=== PATIENT | female | born 1990 | race Caucasian/White ===

== ENCOUNTER 2016-10-09 17:12 | Observation (INO) | payer OTHER ==
[~2016-10-09] VITALS: Ht 170.2 cm; Wt 54.4 kg
[~2016-10-09 17:12] MED LIST: DOXY100V IV; METR500T PO
--- NOTE | 2016-10-09 17:26 | ED.REPORT ---
HPI-General Illness Date of Service Oct 09, 2016 ED Provider: Hemal Barnett MD Pt is a 25 y.o. female with a hx of endocarditis and IV drug use who presents to the ED c/o chest pain onset 3 months ago. Pt reports associated headache, weakness, SOB, fever, chills, malaise, and fatigue. She denies rash. Pt states that she was seen at [facility] ED last night but eloped. She states that they called her today and told her that her blood was "positive for strep". She denies recent IV drug use. She reports that she was hospitalized from December to February of 2016 for endocarditis at [facility]. Nursing Notes Stated Complaint: CHEST PAIN, BLOOD INFECTION/SENT FROM [facility] Nursing Notes Reviewed: Yes Allergies: Coded Allergies: No Known Allergies (Verified Allergy, Unknown, 10/09/16) Scheduled Doxycycline Hyclate (Doxy 100) 100 Mg Vial 100 MG IV BID Metronidazole (Flagyl) 500 Mg Tablet 500 MG PO Q8H General Time Seen by MD: 17:25 Chief Complaint Chest pain Hx Obtained From: Patient Arrived By: Walk-in Sudden in Onset?: No Onset Occurred: More than a week ago... 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 Physical Exam Vital Signs Vital Signs Date Time Temp Pulse Resp B/P Pulse Ox O2 Delivery O2 Flow Rate FiO2 10/09/16 19:00 97 19 105/52 99 Room Air 10/09/16 17:32 36.7 76 16 99/50 100 Room Air Initial VS: Reviewed Head / Eyes: Atraumatic, Normocephalic Extremities: Vascular intact, Neuro intact Neurologic: Alert, Oriented, Nonfocal Psychiatric: Mood/affect normal, Behavior normal, Normal thought content General/Constitutional: Awake, Alert, No acute distress, Well appearing, Well developed, Well hydrated, Well nourished, Not toxic appearing Respiratory / Chest: Atraumatic, Breath sounds NL, Breath sounds = bilat, No respiratory distress, No rales, No rhonchi, No wheezing, No retractions, No stridor Heart Sounds / Murmur: Positive: Systolic murmur present.. (II/) Abdomen: Atraumatic, Soft, Non-tender, No guarding, No rebound, No distention Skin: Atraumatic, No rash, Warm, Dry, Intact Rash / Lesion Pattern: Positive: Track [place] (Well healed, forearms bilaterally ) No splinter hemorrhage Interpretation & Diagnostics Lab Results Interpretation Result Diagram: 10/09/16 1740 10/09/16 1740 Test 10/09/16 17:34 10/09/16 17:40 10/09/16 18:34 Urine Color Yellow (YELLOW) Urine Appearance Hazy (CLEAR,HAZY) Urine pH 7.5 (5.0-8.0) Urine Specific [place] 1.020 (1.003-1.035) Urine Protein Negativemg/dL (NEG,TRACE) Urine Glucose (UA) Negativemg/dL (NEGATIVE) Urine Ketones Negativemg/dL (NEGATIVE) Urine Occult Blood Negative (NEGATIVE) Urine Nitrite Negative (NEGATIVE) Urine Bilirubin Negative (NEGATIVE) Urine Urobilinogen Normalmg/dL (NORMAL) Urine Leukocyte Esterase Negative (NEGATIVE) Urine RBC 0-2/hpf (0-2) Urine WBC 0-5/hpf (0-5) Urine Epithelial Cells Many/hpf (NONE-MOD) Urine Crystals None seen (NONE SEEN) Urine Bacteria Few/hpf (NONE-FEW) Urine Hyaline Casts None/lpf (NONE) Urine Granular Casts None seen (NONE SEEN) Urine Waxy Casts None seen (NONE SEEN) Urine Red Blood Cell Casts None seen (NONE SEEN) Urine White Blood Cell Casts None seen (NONE SEEN) Urine Mucus Present (None Seen) Urine Trichomonas None seen (NONE SEEN) Urine Yeast None (NONE SEEN) Urinalysis Comment None Urine Culture Reflexed Not indicated Hold Urine Received (Received) White Blood Count 5.6th/mm3 (3.8-10.1) Red Blood Count 3.54mil/mm3 (3.90-5.20) Hemoglobin 9.9g/dL (12.0-15.6) Hematocrit 30.1% (35.0-46.0) Mean Corpuscular Volume 85.0fL (81-100) Mean Corpuscular Hemoglobin 28.0pg (27.0-35.0) Mean Corpuscular Hemoglobin Concent 32.9% (32.0-37.0) Red Cell Distribution Width 13.2% (12.3-15.4) Platelet Count 247bil/L (150-400) Neutrophils (%) (Auto) 61.4% (40-74) Lymphocytes (%) (Auto) 29.7% (14-46) Monocytes (%) (Auto) 7.2% (4-12) Eosinophils (%) (Auto) 0.9% (0-5) Basophils (%) (Auto) 0.4% (0-3) Sodium Level 137mEq/L (134-144) Potassium Level 4.3mEq/L (3.5-5.2) Chloride Level 102mEq/L (97-108) Carbon Dioxide Level 20mmol/L (18-29) Blood Urea Nitrogen 11mg/dL (6-20) Creatinine 0.29mg/dL (0.57-1.00) Estimat Glomerular Filtration Rate 401mL/min (>59) Glucose Level 90mg/dL (60-99) Lactic Acid Level 1.1mmol/L (0.4-2.0) Calcium Level 9.0mg/dL (8.5-10.1) Magnesium Level 2.2mg/dL (1.6-2.6) Total Bilirubin 0.2mg/dL (0.0-1.2) Aspartate Amino Transf (AST/SGOT) 26U/L (0-50) Alanine Aminotransferase (ALT/SGPT) 18U/L (0-32) Alkaline Phosphatase 106U/L (25-150) Troponin T < 0.010ug/L (0.0-0.011) Total Protein 7.4g/dL (6.4-8.4) Albumin 3.2g/dL (3.4-5.0) Hold Barrow Top Tube Received (Received) Point of Care Testing: Preg test neg - urine, Lactate normal General Lab Results Interp 1: CMP normal except, CBC normal, Troponin # 1 normal General Lab Results Interp 2: Urinalysis NL ECG Interpretation ECG Interpretation: No acute ST segment changes Low-voltage throughout No prior ECG for comparison Time: 18:03 Interpreted by: ED physician Normal ECG Interpretation: Normal rate (74), Normal sinus rhythm, Normal axis, Normal intervals Drug Screen / Level Interp Urine positive opiate, Urine pos amphetamines X-Ray Chest Interpretation Chest Xray Interpretation: IMPRESSION: No radiographic explanation for chest pain. Dictated by: Enoch Zuleta M.D. on 10/09/2016 at 17:56 Approved by: Enoch Zuleta M.D. on 10/09/2016 at 17:56 Re-Eval/Medical Decision Med Decision/Clinical Course Patient is a 25-year-old female with a history of IV drug abuse and previous admission to [facility] from December to February of last year for bacterial endocarditis who presents to the emergency department with several weeks of vague symptoms including fever, malaise, fatigue, shortness of breath and chest pain. She reports that these symptoms are identical to her previous presentation of endocarditis. She initially denies to me that she has been using IV drugs though when her mother is out of the room she admits that she has been using IV drugs as recently as today. Of note she was seen last night at [facility] where blood cultures were obtained. She was called today and told that her blood cultures are "positive". At the time of evaluation records from [facility] were not immediately available. Upon arrival she is afebrile with stable vital signs though borderline hypotensive. Examination as above was revealing for a systolic murmur. 3 sets of blood cultures were obtained from separate sites 20 minutes apart. She was started on IV vancomycin. Laboratory studies were notable as below: CBC unremarkable, hematocrit 30 Lactate normal Troponin negative Urinalysis unremarkable Positive for meth,opiates, and oxycodone After discussion with the admitting hospitalist will do to obtain a CT scan of the chest to evaluate for any evidence of septic pulmonary emboli. There is no evidence thereof on CT imaging. She remained nontoxic in appearance and IV antibiotics and fluids were initiated. She was admitted to the hospitalist service with plan for echocardiogram and further evaluation for infectious endocarditis. She was transferred in stable condition. Source of Hx: Old records Time of Eval: 19:08 Re-Evaluation/Progress Note: Physical exam performed. Discussed need for admit, pt understands and agrees with plan. Consultation : Referral / Consult Name: Caro Olivo DO Call Returned at: 19:20 Airplane Navigator: Will see patient, Agrees with eval, Agrees with plan, Accepts admit Note: Discussed pt condition. Accepts admit. Counseled Regarding: Diagnosis Discharge & Departure Primary Impression: Endocarditis Endocarditis type: unspecified Chronicity: unspecified Qualified Code: I38 - Endocarditis, valve unspecified Additional Impressions: Fever Fever type: unspecified Qualified Code: R50.9 - Fever, unspecified Malaise Shortness of breath IV drug abuse Bacteremia History of endocarditis Disposition: ADMITTED TO HOSPITAL Discharge Condition All VS Reviewed: Yes Referrals: Asuncion Sanders (PCP) Adia Attestation Portions of this note were transcribed by Batsheva Qureshi. I, Dr. Barnett personally performed the history, physical exam and medical decision-making; I reviewed and confirmed the accuracy of the information in the transcribed note. Signed by: Adia Patrick, 10/09/16 and 192. copies to: Asuncion Sanders Beck O MD Oct 09, 2016 17:26 BATSHEVA QURESHI Oct 09, 2016 18:44
[2016-10-09 17:32] VITALS: BP 99/50; PULSE 76; RESP 16; O2SAT 100
--- NOTE | 2016-10-09 17:58 | DRSVH ---
PROCEDURE: X-RAY CHEST ONE VIEW, PORTABLE ([id number]) INDICATIONS: 25-year-old female with chest pain and possible endocarditis. TECHNIQUE: One view of the chest was acquired. COMPARISON: [facility], CR, XR CHEST 1V PORTABLE, 10/08/2016, 4:41 AM. [facility], CR, CHEST 1VW (PORTABLE), 03/14/2011, 6:47. [facility], RG, CHEST 2VW, 04/19/2005 , 9:36. FINDINGS: Surgical changes and devices: None. Lungs and pleura: No pleural effusions or pneumothorax. Lungs are clear. Mediastinum: Mediastinal contours appear normal. Heart size is normal. Bones and chest wall: No suspicious bony lesions. Overlying soft tissues appear unremarkable. IMPRESSION: No radiographic explanation for chest pain. Dictated by: Enoch Zuleta M.D. on 10/09/2016 at 17:56 Approved by: Enoch Zuleta M.D. on 10/09/2016 at 17:56
[2016-10-09 18:09] LABS: BASOPHILS % (AUTO) 0.4 % (0-3); EOSINOPHILS % (AUTO) 0.9 % (0-5); MONOCYTES % (AUTO) 7.2 % (4-12); NEUTROPHILS % (AUTO) 61.4 % (40-74); Platelet Count 247 bil/L (150-400)
[2016-10-09 18:15] LABS: APPEARANCE,URINE HAZY (CLEAR,HAZY); COLOR,URINE YELLOW (YELLOW); OCCULT BLOOD,URINE NEGATIVE (NEGATIVE); PH,URINE 7.5 (5.0-8.0); UROBILINOGEN,URINE NORMAL (NORMAL)
[2016-10-09 18:38] LABS: Magnesium 2.2 mg/dL (1.6-2.6)
[2016-10-09 18:49] LABS: TROPONIN T < 0.010 ug/L (0.0-0.011)
[2016-10-09 19:00] VITALS: BP 105/52; PULSE 97; RESP 19; O2SAT 99
[2016-10-09] MEDS ORDERED: Ondansetron 2 mg/mL 2 mL Inj IVPUSH PRN (19:15)
[2016-10-09] MEDS ORDERED: Alum-Mag Hydrox-Simeth 30 mL Suspension PO PRN (19:15)
[2016-10-09] MEDS ORDERED: Vancomycin Dose per Pharmacist XX ONE (19:15)
[2016-10-09] MEDS ORDERED: Vancomycin Inj 1,250 MG in 0.9% Sodium Chloride 250 ML IV ONE (19:25)
--- NOTE | 2016-10-09 20:15 | DRSVH ---
PROCEDURE: CT CHEST WITH CONTRAST ([id number]) INDICATIONS: 25-year-old female with history of endocarditis. Assess for septic emboli. TECHNIQUE: After the administration of intravenous contrast, 5 mm thick sections acquired from the pulmonary api clinton to the posterior costophrenic angles. 7 mm thick coronal and sagittal MIP reformats were acquire d. For radiation dose reduction, the following was used: automated exposure control, adjustment of mA and/or kV according to patient size. COMPARISON: [facility], CR, XR CHEST 1VW (PORTABLE), 10/09/2016, 17:31. FINDINGS: Image quality: Excellent. Lungs and pleura: No acute air space opacities. On axial image 34, 6 mm posterior right lower lobe nodule is present. On axial image 24, 1.2 cm posterior left upper lobe nodular lesion is present. T here is scattered right lung base linear scarring. No pleural effusions or pneumothorax. Central an d peripheral airways are patent and normal in caliber. Mediastinum: Heart size is normal. No pericardial effusion. No mediastinal or hilar adenopathy by size criteria. Thoracic aorta and central pulmonary arteries are normal in size. Esophagus is joseline l in caliber. No hiatal hernia. Bones and chest wall: Bilateral breast implants are present. No suspicious bony lesions. No verteb ral body compression fractures. No axillary or supraclavicular adenopathy by size criteria. Thyroid gland is incompletely visualized . Abdomen: Visualized upper abdominal solid organs appear normal. Upper abdominal bowel loops are nor mal in caliber. IMPRESSION: Several indeterminate bilateral pulmonary nodular lesions measure 6-12 mm in size, without internal c avitation currently to specifically suggest septic emboli. If outside institution chest CTs are unab le to be obtained for direct comparison, 2017 Fleischner Society criteria recommend 3-6 month follow- up with non contrast chest CT. Dictated by: Enoch Zuleta M.D. on 10/09/2016 at 20:07 Approved by: Enoch Zuleta M.D. on 10/09/2016 at 20:14
[2016-10-09 20:53] VITALS: BP 110/57; PULSE 83; RESP 18; O2SAT 98
[2016-10-09 21:04] VITALS: BP 108/68; PULSE 88; RESP 16; O2SAT 100
[2016-10-09 21:06] VITALS: PULSE 87
--- NOTE | 2016-10-09 21:32 | NUR ---
Admission Patient admitted to [facility] 2001 at 2100. Vancomycin infusing. A&Ox3, HAMMOND; denies pain at this time. Admits heroin and meth use and states smokes 5-10 cigarettes/day, but states she "never finishes a whole cigarette" and during her last hospitalization she never needed a nicotine patch. Patient oriented to room, call light, and policies. Tele: sinus rhythm in the 80s. SpO2 100% on room air. Continue to monitor.
--- NOTE | 2016-10-09 21:57 | PCM.HPMED ---
Subjective Date of Service Oct 09, 2016 Primary Provider: Admitting Physician: Primary Care Physician: Asuncion Sanders Attending Physician: Admit Status: From the Emergency Department Chief Complaint: Endocarditis Bacteremia History of Present Illness: 25-year-old woman with history of endocarditis and IV drug abuse presented to the emergency department complaining of chest pain onset 3 months ago, she was previously seen at [place] emergency department last night but eloped, she had blood cultures taken at the time which she was contacted today as being positive for strep. She was previously treated at [facility] in February 2016 for endocarditis. She admits to using IV heroin before coming to the emergency department today. She endorses chest pain, headache, weakness, shortness of breath, fever, chills , malaise and fatigue, constipation, no pain in her fingertips or toes. No Nausea, vomiting, diarrhea, dysuria, changes in vision, joint pain: In the emergency department, her urine was positive for heroin, methamphetamines , and oxycodone, she is not . Blood cultures 2 were taken in the ER before starting antibiotics, results pending. White blood cells were 5.6, hemoglobin 9.9, platelets 274, normal differential. Lactic acid 1.1, negative troponin, CMP otherwise unremarkable. One view chest x-ray performed 10/09/16 at 1730 4 PM IMPRESSION: No radiographic explanation for chest pain. Dictated by: Enoch Zuleta M.D. on 10/09/2016 at 17:56 EKG performed in the emergency department showed a heart rate of 74, sinus rhythm, normal axis, TN interval of 138, QTC of 445, "nonspecific intraventricular conduction delay" Review of Systems: Preventive of review of systems negative unless specified in history of present illness Allergies Coded Allergies: No Known Allergies (Verified Allergy, Unknown, 10/09/16) PMH Endocarditis Polysubstance abuse History of Elopement Surgical History L eye surgery when child Family History Father- HTN Mother - Alive and well. "Family history of alcoholism and diabetes." Social History Occupation: Unemployed Hx Alcohol Use: No Hx Substance Use: Yes (heroine, meth, last use today) Hx Tobacco Use: Yes Smoking Status: Current Every Day Smoker (5-10 cig/d for 8yrs) Years of Smokin Living Arrangement: Other (with significant other) Additional Information Spent 41 hospitalized for Endocarditis, staph infections, septic emboli. Exam Vital Signs Vital Sign - Last Date Time Temp Pulse Resp B/P Pulse Ox O2 Delivery O2 Flow Rate FiO2 10/09/16 19:00 97 19 105/52 99 Room Air 10/09/16 17:32 36.7 Exam General: Laying in bed, no apparent distress. HEENT: Normocephalic, atraumatic, EOMI grossly, Pupils 1.5mm fixed. Hyperpigmented lesion to L sclera. Mucous membranes moist, no lesions to mucosa. Cardiovascular: Regular rate and rhythm, 3/6 harsh systolic murmur at 4th L intercostal space. peripheral pulses 2/4 equal bilaterally Pulmonary: Clear to auscultation bilaterally, no W/R/R. Abdominal: Soft to palpation, bowel sounds present 4, no hepatosplenomegaly. Negative rebound. Extremities: No edema appreciated. No tenderness, asymmetry. Positive for multiple lesion pin-prick lesions along peripheral veins. No abscesses or rashes identified. No [place] lesions, No splinter infarcts. No chords. Neuro: Neurologically grossly intact, strength is equal bilaterally upper and lower extremities. MSK: able to move extremities on their own volition, strength 5 out of 5 equal bilaterally to upper and lower extremities. Lab and Diagnostics Labs CRP 10.7 on 10/08/16 Laboratory Tests 72 Hours Test 10/09/16 17:34 10/09/16 17:40 10/09/16 18:34 Urine Color Yellow (YELLOW) Urine Appearance Hazy (CLEAR,HAZY) Urine pH 7.5 (5.0-8.0) Urine Specific [place] 1.020 (1.003-1.035) Urine Protein Negativemg/dL (NEG,TRACE) Urine Glucose (UA) Negativemg/dL (NEGATIVE) Urine Ketones Negativemg/dL (NEGATIVE) Urine Occult Blood Negative (NEGATIVE) Urine Nitrite Negative (NEGATIVE) Urine Bilirubin Negative (NEGATIVE) Urine Urobilinogen Normalmg/dL (NORMAL) Urine Leukocyte Esterase Negative (NEGATIVE) Urine RBC 0-2/hpf (0-2) Urine WBC 0-5/hpf (0-5) Urine Epithelial Cells Many/hpf (NONE-MOD) Urine Crystals None seen (NONE SEEN) Urine Bacteria Few/hpf (NONE-FEW) Urine Hyaline Casts None/lpf (NONE) Urine Granular Casts None seen (NONE SEEN) Urine Waxy Casts None seen (NONE SEEN) Urine Red Blood Cell Casts None seen (NONE SEEN) Urine White Blood Cell Casts None seen (NONE SEEN) Urine Mucus Present (None Seen) Urine Trichomonas None seen (NONE SEEN) Urine Yeast None (NONE SEEN) Urinalysis Comment None Urine Culture Reflexed Not indicated Hold Urine Received (Received) White Blood Count 5.6th/mm3 (3.8-10.1) Red Blood Count 3.54mil/mm3 (3.90-5.20) Hemoglobin 9.9g/dL (12.0-15.6) Hematocrit 30.1% (35.0-46.0) Mean Corpuscular Volume 85.0fL (81-100) Mean Corpuscular Hemoglobin 28.0pg (27.0-35.0) Mean Corpuscular Hemoglobin Concent 32.9% (32.0-37.0) Red Cell Distribution Width 13.2% (12.3-15.4) Platelet Count 247bil/L (150-400) Neutrophils (%) (Auto) 61.4% (40-74) Lymphocytes (%) (Auto) 29.7% (14-46) Monocytes (%) (Auto) 7.2% (4-12) Eosinophils (%) (Auto) 0.9% (0-5) Basophils (%) (Auto) 0.4% (0-3) Sodium Level 137mEq/L (134-144) Potassium Level 4.3mEq/L (3.5-5.2) Chloride Level 102mEq/L (97-108) Carbon Dioxide Level 20mmol/L (18-29) Blood Urea Nitrogen 11mg/dL (6-20) Creatinine 0.29mg/dL (0.57-1.00) Estimat Glomerular Filtration Rate 401mL/min (>59) Glucose Level 90mg/dL (60-99) Lactic Acid Level 1.1mmol/L (0.4-2.0) Calcium Level 9.0mg/dL (8.5-10.1) Magnesium Level 2.2mg/dL (1.6-2.6) Total Bilirubin 0.2mg/dL (0.0-1.2) Aspartate Amino Transf (AST/SGOT) 26U/L (0-50) Alanine Aminotransferase (ALT/SGPT) 18U/L (0-32) Alkaline Phosphatase 106U/L (25-150) Troponin T < 0.010ug/L (0.0-0.011) Total Protein 7.4g/dL (6.4-8.4) Albumin 3.2g/dL (3.4-5.0) Hold Barrow Top Tube Received (Received) Result Diagram: 10/09/16 1740 10/09/16 1740 Microbiology BC X2 pending. Results from [facility], requested to be faxed over. X-Rays, CTs and MRIs Chest CT performed 10/09/2016 IMPRESSION: Several indeterminate bilateral pulmonary nodular lesions measure 6-12 mm in size, without internal cavitation currently to specifically suggest septic emboli. If outside institution chest CTs are unable to be obtained for direct comparison, 2017 Fleischner Society criteria recommend 3-6 month follow-up with non contrast chest CT. Dictated by: Enoch Zuleta M.D. on 10/09/2016 at 20:07 12-lead ECG See history of present illness Assessment & Plan 25-year-old with polysubstance abuse history of endocarditis, septic emboli, presents with positive blood cultures for gram-positive strep and multiple complaints. #1 acute bacteremia, present on admission, evaluation ongoing - Verbal positive result for gram-positive strep growth on blood cultures from [facility], awaiting results to be faxed over. (now in chart) - History of endocarditis secondary to IV drug use, continues to use, 3/6 tricuspid murmur. - Echocardiogram to be performed in a.m. - Vancomycin IV q24hrs started empirically. Pharmact to dose. Awaiting susceptibilities. - Consult infectious disease - Monitor vital signs closely for signs of sepsis - Hold off on starting PICC line until evaluated by ID. Repeat BCx pending. - Procalcitonin Now and Trend. #2 acute bilateral pulmonary nodules, present on admission, evaluation ongoing. - Possibly due to septic emboli, unable to determine if new, old, or change from previous - [facility] or reguarding previous hospital course for endocarditis with septic emboli. - ID consult as above. - likely source tricuspid vegetation. - Awaiting AM ECHO. #3 chronic endocarditis, present on admission, evaluation ongoing - History of endocarditis, continued murmur at fourth left intercostal space, 3 out of 6, harsh. - Echo as above, empiric antibiotics as above. #4 chronic polysubstance abuse, currently using, present on admission, unstable. - IV drug use with heroin prior to admission - Urine tox positive for heroin, methamphetamines, and oxycodone. Patient denies oxycodone use. - Withdraw treatment per COWS protocol Tx with Subutex. -First dose is scheduled for 202910/10/16, this will be roughly 24hrs since last used. However, should be administered once a COW score of 12 is reached. Pharmacy notified of dosing/dispensing plan. - Doctors [facility] Laursen available to continue Suboxone Tx on Discharge to manage in the outpatient setting. #5 Acute Normocytic Anemia, present on Admission, Stable. - Most likely due to chronic disease states of endocarditis, with superimposed pulmonary nodules. - CBC in AM, continue to monitor. #5 Tobacco Use. Present on admission. Stable. - Encourage tobacco cessation - Nicotine Patches while hospitalized. GI Prophylaxis not indicated Antithrombolic therapy with Sub Q heparin. Pain management with subutex per COW protocol. NO OPIOIDS. Pain Evaluation: Adequate Pain Control GI Prophylaxis: Not indicated VTE Prophylaxis: Sub-Q Heparin (Unfractionated) Resuscitation Status: CPR: Attempt Resuscitation Attending Statement The patient was seen and examined together with house staff on 10/09/2016 and I agree with the history, exam and plan as outlined in the note above. Nick San DO Oct 09, 2016 20:58 Caro Olivo DO Oct 10, 2016 03:20
[2016-10-10] VITALS (10 sets, daily range): BP systolic 98–110; BP diastolic 59–76; PULSE 75–94; RESP 16–22; O2SAT 97–100
[2016-10-10] MEDS: Heparin 5,000 Unit/mL Inj SUBQ SCH ×3 (00:30→17:34)
--- NOTE | 2016-10-10 03:14 | PCM.CONPHA ---
Subjective Date of Service: Oct 10, 2016 Requesting Provider: Nick San DO Endocarditis Bacteremia Reason for Pharmacy Consult: Vancomycin Dosing Objective Vital Signs Date Time Temp Pulse Resp B/P Pulse Ox O2 Delivery O2 Flow Rate FiO2 10/10/16 00:11 36.5 75 16 105/65 97 Room Air 10/09/16 21:06 87 10/09/16 21:04 36.8 88 16 108/68 100 Room Air 10/09/16 20:53 83 18 110/57 98 Room Air 10/09/16 19:00 97 19 105/52 99 Room Air 10/09/16 17:32 36.7 76 16 99/50 100 Room Air Weight (Kilograms): 54.400 Height (Feet): 5 Height (Inches): 7.00 Test 10/09/16 17:34 10/09/16 17:40 10/09/16 18:34 Urine Color Yellow (YELLOW) Urine Appearance Hazy (CLEAR,HAZY) Urine pH 7.5 (5.0-8.0) Urine Specific Varnell 1.020 (1.003-1.035) Urine Protein Negativemg/dL (NEG,TRACE) Urine Glucose (UA) Negativemg/dL (NEGATIVE) Urine Ketones Negativemg/dL (NEGATIVE) Urine Occult Blood Negative (NEGATIVE) Urine Nitrite Negative (NEGATIVE) Urine Bilirubin Negative (NEGATIVE) Urine Urobilinogen Normalmg/dL (NORMAL) Urine Leukocyte Esterase Negative (NEGATIVE) Urine RBC 0-2/hpf (0-2) Urine WBC 0-5/hpf (0-5) Urine Epithelial Cells Many/hpf (NONE-MOD) Urine Crystals None seen (NONE SEEN) Urine Bacteria Few/hpf (NONE-FEW) Urine Hyaline Casts None/lpf (NONE) Urine Granular Casts None seen (NONE SEEN) Urine Waxy Casts None seen (NONE SEEN) Urine Red Blood Cell Casts None seen (NONE SEEN) Urine White Blood Cell Casts None seen (NONE SEEN) Urine Mucus Present (None Seen) Urine Trichomonas None seen (NONE SEEN) Urine Yeast None (NONE SEEN) Urinalysis Comment None Urine Culture Reflexed Not indicated Hold Urine Received (Received) White Blood Count 5.6th/mm3 (3.8-10.1) Red Blood Count 3.54mil/mm3 (3.90-5.20) Hemoglobin 9.9g/dL (12.0-15.6) Hematocrit 30.1% (35.0-46.0) Mean Corpuscular Volume 85.0fL (81-100) Mean Corpuscular Hemoglobin 28.0pg (27.0-35.0) Mean Corpuscular Hemoglobin Concent 32.9% (32.0-37.0) Red Cell Distribution Width 13.2% (12.3-15.4) Platelet Count 247bil/L (150-400) Neutrophils (%) (Auto) 61.4% (40-74) Lymphocytes (%) (Auto) 29.7% (14-46) Monocytes (%) (Auto) 7.2% (4-12) Eosinophils (%) (Auto) 0.9% (0-5) Basophils (%) (Auto) 0.4% (0-3) Sodium Level 137mEq/L (134-144) Potassium Level 4.3mEq/L (3.5-5.2) Chloride Level 102mEq/L (97-108) Carbon Dioxide Level 20mmol/L (18-29) Blood Urea Nitrogen 11mg/dL (6-20) Creatinine 0.29mg/dL (0.57-1.00) Estimat Glomerular Filtration Rate 401mL/min (>59) Glucose Level 90mg/dL (60-99) Lactic Acid Level 1.1mmol/L (0.4-2.0) Calcium Level 9.0mg/dL (8.5-10.1) Magnesium Level 2.2mg/dL (1.6-2.6) Total Bilirubin 0.2mg/dL (0.0-1.2) Aspartate Amino Transf (AST/SGOT) 26U/L (0-50) Alanine Aminotransferase (ALT/SGPT) 18U/L (0-32) Alkaline Phosphatase 106U/L (25-150) Troponin T < 0.010ug/L (0.0-0.011) Total Protein 7.4g/dL (6.4-8.4) Albumin 3.2g/dL (3.4-5.0) Procalcitonin 0.25ng/mL (0.00-0.08) Hold Barrow Top Tube Received (Received) Assessment/Plan Assessment/Plan A/ - 25 y/o IVDU female needed Vancomycin therapy to treat endocarditis. Patient had been hospitalized 42 times for endocarditis, staph infection and septic emboli. She went AMA yesterday from [facility], the culture took from there showed positive for Gram-positive strep. - Afebrile. Normal WBC: 5.6, blood cultures (x2) obtained before started abx in ED - Wt: 54.4 kg, ht: 170 cm, SCr: 0.29 mg/dL, est clearance > 150 ml/min - Vancomycin 1.25G loading dose given @10/09 - ID consult in am P/ - Give Vancomycin 1G iv q8h. Trough level ordered before 4th dose @1930 Thank you for consulting clinical pharmacy Alessandro Brandon, PharmD, [facility] Harriett Brandon Oct 10, 2016 03:14
[2016-10-10 03:21] LABS: BASOPHILS % (AUTO) 0.4 % (0-3); EOSINOPHILS % (AUTO) 1.9 % (0-5); MONOCYTES % (AUTO) 13.1 % (4-12); Mean Corpuscular Hemoglobin 27.7 pg (27.0-35.0); Mean Corpuscular Volume 85.1 fL (81-100); Platelet Count 222 bil/L (150-400)
[2016-10-10] MEDS: Vancomycin Inj 1,000 MG in IV Premix 1 EACH IV SCH ×2 (04:27→12:13)
[2016-10-10] MEDS ORDERED: Ondansetron 2 mg/mL 2 mL Inj IVPUSH PRN (06:00)
[2016-10-10] MEDS ORDERED: Alum-Mag Hydrox-Simeth 30 mL Suspension PO PRN (06:00)
[2016-10-10] MEDS ORDERED: Polyethylene Glycol (PEG) 17 Gm Powder PO PRN (06:00)
--- NOTE | 2016-10-10 13:33 | NUR ---
History and Physical Admission Documentation Her history and physical was completed with information from [place] records and MD patient interview. Care continues.
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
--- NOTE | 2016-10-10 14:58 | NUR ---
Social Work Note: Screen Note Data& Assessment: EMR reviewed. SW met with pt at bedside to complete CD Assessment ( See CD Assessment documented under a separate note). SW assessed pt for any unmet needs and confirmed discharge plan. Azeb Jin is a 25 year old female admitted on 10/09/2016 for Endocarditis. Pt has coordinated care insurance coverage and sees [facility] for primary care. Pt lives in [place] with her boyfriend and is independent at baseline. Pt confirmed that her boyfriend will be able to transport her home when medically ready. Pt was accepting of CD resources and will let SW know if she would like a bedside assessment completed by [facility]. SW requested referral for ongoing CM check in from her insurance [employer]. Pt denies any other needs. No other discharge needs identified. SW to continue to check in with pt and assess for any unmet needs. Plan: Anticipated discharge home via POV when medically ready vs. antibiotic course at [facility] vs. [facility]. Pt denies any other needs. No other discharge needs identified. SW to continue to check in with pt and assess for any unmet needs. ROD Ni
[2016-10-10] MEDS ORDERED: cloNIDine 0.1 mg Tablet PO PRN (16:05)
--- NOTE | 2016-10-10 16:08 | DRSVH ---
[facility] [address] [place] [address] Echocardiogram Report Name: AMADEO CHI NStudy Date: 01/2017 Height: 67 in Hospital Exam Location: [facility] Weight: 12 0 lb Gender: Female BSA: 1.6 m2 : 1990 Age: 25 yrs BP: 104/70 mmHg Reason For Study: Endocarditis Ordering Physician: HOSPITALIST [facility] Performed By: Loraine Nieto Referring Physician: JERRICA PEDRO Interpretation Summary The left ventricle is normal in size, wall thickness, and systolic function without any focal wall motion abnormalities. The ejection fraction is estimated to be 60-65%. There is a 1.4 cm x 1.8 cm mobile mass attached to the anterior leaflet, this is c/w a large vegetation There is moderate tricuspid regurgitation. The right ventricular systolic pressure is estimated at 21 mmHg assuming a right atrial pressure of 3 mm Hg. Procedure: A two-dimensional transthoracic echocardiogram with color flow and Doppler was performed. The study quality was technically good. Comparison is made with the echocardiogram of 05/04/06. The patient was in normal sinus rhythm during the exam. Left Ventricle: The left ventricle is normal in size, wall thickness, and systolic function without any focal wall motion abnormalities. The ejection fraction is estimated to be 60-65%. Assessment of diastolic parameters indicates normal left ventricular diastolic function and normal filling pressures. Right Ventricle: The right ventricle grossly appears normal in size with probable normal systolic function. The right ventricular wall motion is normal. Atria: The left atrial size is normal. The right atrium is moderately dilated. There is no Doppler evidence for an interatrial shunt. Mitral Valve: The mitral valve is normal. There is no mitral regurgitation noted. Aortic Valve: The aortic valve is normal in structure and function. Tricuspid Valve: The tricuspid valve is normal in structure but is abnormal in function. There is a 1.4 cm x 1.8 cm mobile mass attached to the anterior leaflet, this is c/w a large vegetation. There is moderate tricuspid regurgitation. The right ventricular systolic pressure is estimated at 21 mmHg assuming a right atrial pressure of 3 mm Hg. Pulmonic Valve: The pulmonic valve is not well seen, but is grossly normal. There is a trace or physiologic amount of pulmonic regurgitation. Great Vessels: The aortic root is normal size. The ascending aorta is normal in size. The aortic arch is normal in size. The pulmonary artery is not well visualized, but is probably normal size. The IVC is of normal diameter and collapses greater than 50% with a sniff. This suggests a low right atrial pressure of 3 mm Hg. Pericardium/ Pleura There is no pericardial effusion. There is no pleural effusion. MMode/2D Measurements & Calculations LVIDd: 4.5 cm LA dimension: 2.7 cm RA long axis LVOT diam: 2.0 cm LVIDs: 2.6 cm AoV Opening FS: 41.6 % LA A2 area: 11.8 cm RA area EPSS: 0.17 cm LA A4 area: 12.2 cm Ao root diam IVSd: 0.60 cm LA length (vol) : 20.8 cm LVPWd: 0.78 cm RA vol asc Aorta Diam LA vol: 32.9 ml : 71.4 ml LA vol index RA Ao Arch Diam (Prox : 43.9 mm2 Trans): 2.1 cm IVC diam: 1.6 cm LV dorantes. diameter/BSA LV sys. diameter/BSA RVD1 (basal) (cm/m^2): 2.8 (cm/m^2): 1.6 Doppler Measurements & Calculations Ao V2 max MV E max shaji MV E/A: 1.8 TR max shaji : 128.0 cm/sec : 90.9 cm/sec Med Peak E' Shaji : 213.6 cm/sec Ao max PG MV A max shaji TR max PG : 6.6 mmHg : 50.0 cm/sec E/E' med: 6.7 : 18.3 mmHg Ao mean PG MV P1/2t: 73.7 msec Lat Peak E' Shaji PA V2 max : 87.7 cm/sec LVOT Max Shaji E/E' lat: 8.8 PA mean PG : 103.6 cm/sec E/e' average: 7.8 MV A dur: 0.10 sec PA Accel Time RUDDY(I,D): 2.7 cm : 0.14 sec sev ratio MV dec time MV P1/2t max shaji Ao V2 mean LV V1 max PG : 0.25 sec : 89.4 cm/sec MVA(P1/2t): 3.0 cm2 Ao V2 VTI: 21.8 cm LV V1 VTI RUDDY(V,D): 2.5 cm2 : 18.7 cm PA V2 mean RUDDY indexed to BSA : 52.3 cm/sec (cm^2/m^2): 1.6 Electronically signed by: Brooks Spencer on Reading Physician:10/10/2016 04:07 PM
--- NOTE | 2016-10-10 18:38 | NUR ---
[facility]'s Blood Culture Results AGUSTINA Garcia from [facility] called to notify staff that the blood cultures that were drawn yesterday in the ED came back positive with cocci and possible strep like our lab culture results. Dr. Ortiz notified. No new orders other than to continue current antibiotic therapy. Care continues. Addendum: 10/10/16 at 1842 by ROSEMARY PATEL RN She called at 1640.
[2016-10-10] MEDS ORDERED: Vancomycin Serum Trough XX ONE (19:30)
[2016-10-10] MEDS: Buprenorphine 2 mg SL Tablet SL SCH (19:58)
[2016-10-10] MEDS: Vancomycin Dose per Pharmacist XX SCH (20:00)
--- NOTE | 2016-10-10 20:03 | PCM.PNMED ---
Subjective Date of Service Oct 10, 2016 Subjective Hospital day 1 Overnight: no acute events Today: Patient reports a chronic headache worsening over the last month. She states that she takes ibuprofen and Tylenol daily. She states that she feels wobbly on her feet but denies poor coordination or falling. She states that she will not take Suboxone and requests Methadone for her opiate addiction. She was not pleased that [facility] could not prescribed Methadone. She states she was taking Methadone in [place] when she previously was hospitalized. Patient refused initial echocardiogram. She states that she will allow them to preform the exam later. 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 Exam Vital Signs Vital Sign - Last Date Time Temp Pulse Resp B/P Pulse Ox O2 Delivery O2 Flow Rate FiO2 10/10/16 03:46 36.6 82 16 104/70 97 Room Air Intake and Output 10/09/16 10/09/16 10/10/16 Cumulative From/Thru 15:00 23:00 07:00 10/09/16 17:32 - 10/10/16 06:15 Intake Total 534 ml 534 ml Output Total 300 ml 300 ml Balance 234 ml 234 ml Intake Oral 0 ml 0 ml IV Total 534 ml 534 ml Output Urine Total 300 ml 300 ml # Voids 1 1 Exam General: alert and oriented in Laying in bed, no apparent distress. HEENT: Normocephalic, atraumatic, EOMI grossly intact, PERRLA. Hyperpigmented lesion to L sclera patient states present since childhood. Mucous membranes moist, no lesions to mucosa. Neck: trachea midline, no JVD Cardiovascular: Regular rate and rhythm, 3/6 harsh systolic murmur at 4th L intercostal space. peripheral pulses 2/4 equal bilaterally at dorsalis pedis and radial Pulmonary: mild course breath sounds bilaterally, no wheezing or rhonchi Abdominal: Soft to palpation, bowel sounds present 4, no hepatosplenomegaly. Negative rebound. Extremities: No edema appreciated. No tenderness, asymmetry. Positive for multiple lesion pin-prick lesions along peripheral veins. No abscesses or rashes identified. No Janeway lesions, No splinter infarcts. Neuro: Neurologically grossly intact, with CN II-XII, no dysdiadochokinesia in upper or lower extremities bilaterally, strength is equal bilaterally upper and lower extremities. MSK: able to move extremities on their own volition, strength 5 out of 5 equal bilaterally to upper and lower extremities. : no mendoza in place Psych: Normal mood flat affect Lab and Diagnostics Result Diagram: 10/10/16 0250 10/10/16249 Microbiology BC X2 pending. Results from [facility], requested to be faxed over. X-Rays, CTs and MRIs Chest CT performed 10/09/2016 IMPRESSION: Several indeterminate bilateral pulmonary nodular lesions measure 6-12 mm in size, without internal cavitation currently to specifically suggest septic emboli. If outside institution chest CTs are unable to be obtained for direct comparison, 2017 Fleischner Society criteria recommend 3-6 month follow-up with non contrast chest CT. Dictated by: Enoch Zuleta M.D. on 10/09/2016 at 20:07 12-lead ECG See history of present illness Cardiac Echo Impressions Echocardiogram Report Interpretation Summary The left ventricle is normal in size, wall thickness, and systolic function without any focal wall motion abnormalities. The ejection fraction is estimated to be 60-65%. There is a 1.4 cm x 1.8 cm mobile mass attached to the anterior leaflet, this is c/w a large vegetation There is moderate tricuspid regurgitation. The right ventricular systolic pressure is estimated at 21 mmHg assuming a right atrial pressure of 3 mm Hg. Electronically signed by: Brooks Spencer on Reading Physician:10/10/2016 04:07 PM Assessment & Plan 25-year-old with polysubstance abuse history of endocarditis, septic emboli, presents with positive blood cultures for gram-positive strep and multiple complaints. #1 acute bacteremia, present on admission, evaluation ongoing - Verbal positive result for gram-positive strep growth on blood cultures from [facility], results to be faxed over now in chart positive for Streptococcal - History of endocarditis secondary to IV drug use in December to February of 2016 at [place], continues to use, 3/6 tricuspid murmur. - Echocardiogram performed consistent with vegetative lesion - Vancomycin IV q24hrs started empirically. Pharmacy to dose. Initial cultures returning positive with likely Strep Awaiting susceptibilities. - Consult infectious disease - Monitor vital signs closely for signs of sepsis - Hold off on starting PICC line until evaluated by ID. Repeat BCx pending. - Procalcitonin elevated #2 acute bilateral pulmonary nodules, present on admission, evaluation ongoing. - likely due to septic emboli, unable to determine if new, old, or change from previous - [facility] or regarding previous hospital course for endocarditis with septic emboli. - ID consult as above. - likely source tricuspid vegetation. - Awaiting AM ECHO. #3 chronic endocarditis, present on admission, evaluation ongoing - History of endocarditis, continued murmur at fourth left intercostal space, 3 out of 6, harsh. - Echo as above, empiric antibiotics as above. #4 chronic polysubstance abuse, currently using, present on admission, unstable. - IV drug use with heroin prior to admission - Urine tox positive for heroin, methamphetamines, and oxycodone. Patient denies oxycodone use. - Withdraw treatment per COWS protocol Tx with Subutex. Patient refused Suboxone , requested Methadone -First dose is scheduled for 2030 10/10/16, this will be roughly 24hrs since last used. However, should be administered once a COW score of 12 is reached. Pharmacy notified of dosing/dispensing plan. - Doctors Mercy Jenkins, Amelia available to continue Suboxone Tx on Discharge to manage in the outpatient setting. - Clonidine 0.1mg PO q1hr PRN, Hydoxyzine 50mg PO Q6hrs PRN, and Baclofen PRN available - patient has been referred to pain management in the past without follow up, social work will follow #5 Acute Normocytic Anemia, present on Admission, Stable. - Most likely due to chronic disease states of endocarditis, with superimposed pulmonary nodules. - CBC in AM, continue to monitor. #6 Headache, present on admission, under evaluation - CT with and without contrast on [place] was negative for pathology - repeat brain MRI with and without contrast looking for septic emboli given patient history #7 Tobacco Use. Present on admission. Stable. - Encourage tobacco cessation - Nicotine Patches while hospitalized. GI Prophylaxis not indicated DVT prophylaxis with Sub Q heparin. Pain management with Tylenol patient refused Suboxone per COW protocol. NO OPIOIDS. Disposition: Patient will need 6wks of IV antibiotics, with discuss with ID likely discharge on dalbavancin given risk of IV drug use if allowed PICC GI Prophylaxis: Not indicated VTE Prophylaxis: Sub-Q Heparin (Unfractionated) Resuscitation Status: CPR: Attempt Resuscitation Attending Statement The patient was seen and examined together with Dr. Ching on 10/10/2016 and I agree with the history, exam and plan as outlined in the note above. . Robert Ching DO Oct 10, 2016 07:44 Jesu Wilson MD Oct 11, 2016 07:32
--- NOTE | 2016-10-10 20:28 | PCM.PHAPRO ---
Progress Date of Service: Oct 10, 2016 Endocarditis Bacteremia Vancomcyin dose per pharmacy Indication: bacteremia, endocarditis Pertinent info: hx of IVDU, hospitalized 42 times for endocarditis, staph infection and septic emboli. Went AMA from [facility] prior to admit here. Microbiology/labs: - GRAM POSITIVE COCCI ?STREP - WBC: 7.5 - SCr: 0.3 - Weight: 54.4 kg - Height: 170.18 cm - Trough: 11.0 drawn at 1840 Trough was scheduled to be drawn at 1930 but was drawn early at 1840 Likely that trough would have been lower had it been drawn at the scheduled time. Increase vancomycin to 1250 mg Q8H. Trough has been ordered for 10/11/16 at 1230 prior to 3rd dose. Protocol is to check trough prior to 4th dose but will draw prior to 3rd due to high total daily dose to ensure there is no accumulation. Pharmacy to continue to monitor and dose vancomycin. Thank you, Cade Lugo Pharmacist Cade Lugo Oct 10, 2016 20:28
[2016-10-10] MEDS: Vancomycin Inj 1,250 MG in 0.9% Sodium Chloride 250 ML IV SCH (22:49)
[2016-10-11] MEDS: Heparin 5,000 Unit/mL Inj SUBQ SCH ×2 (00:30→11:39)
--- NOTE | 2016-10-11 01:33 | NUR ---
MRI/ IV access. Phone call received at start of shift for Pt to go down for MRI. Around 2100 transport here to take pt. When reviewing questions with pt it came to light that pt says she has a metal needle which broke off in her elbow. MRI notified who in turn notified the radiologist. At this time pt tired and wanting to postpone MRI. Will discuss with day RN and have her pass on to day team order for MRI along with metal in arm. Addendum: 10/11/16 at 0154 by CALEB BENJAMIN RN IV: IV on right infiltrated. IV d/c intact. Multiple IV starts attempted by multiple RNS. finally 24 g IV obtained on Right hand. Vanco infusing at slow rate to minimize risk for infiltration.
--- NOTE | 2016-10-11 02:48 | NUR ---
Non- compliance Pt refusing 0030 heparin dose in addition to AM labs.
[2016-10-11 03:25] VITALS: BP 104/64; PULSE 66; RESP 16; O2SAT 97
[2016-10-11] MEDS: Vancomycin Inj 1,250 MG in 0.9% Sodium Chloride 250 ML IV SCH ×2 (05:53→14:03)
[2016-10-11 06:18] LABS: Hepatitis A Antibody IgM Negative (Negative); Hepatitis B Core Antibody IgM Negative (Negative)
[2016-10-11 07:30] VITALS: PULSE 60
[2016-10-11] MEDS: Vancomycin Dose per Pharmacist XX SCH (08:30)
[2016-10-11] MEDS: Buprenorphine 2 mg SL Tablet SL SCH (08:30)
--- NOTE | 2016-10-11 10:34 | CONS ---
[address] [address] CONSULTATION REPORT PATIENT: AMADEO CHI : 1990 MR#: [id number] ADMIT: 10/09/2016 JOB ID: [id number] DATE OF SERVICE: 10/11/2016 INFECTIOUS DISEASE CONSULT: I thank Dr. Ching for this timely consult. REASON FOR CONSULTATION: Right-sided endocarditis in an IV drug user. HISTORY OF PRESENT ILLNESS: The patient is an unfortunate 25-year-old, young lady from the [facility]. She has a longstanding history of IV heroin use which persisted basically up until the time of this admission on October 09. The patient's recent relevant history is that in the summer of last year back in February she was admitted to [facility] with tricuspid endocarditis and septic pulmonary emboli due to high-grade MSSA bacteremia. She was treated for 41 days and apparently left AMA one day prior to the conclusion of her six weeks of antibiotics but at that point, she was doing very well. The patient reports that following that antibiotic treatment she felt fine for about four months ago, though, of course, she continued to use IV drugs. About two months ago though, she started to develop a recrudescence of symptoms which were somewhat indolent but have slowly progressed. These symptoms have included fevers, chills, headache, photophobia, malaise, myalgias and some mild shortness of breath without cough. There has been no associated chest pain. These symptoms have slowly progressed over about two months and led her to the [facility] a few days ago where blood cultures were done, and they had recommended she be admitted but she left. The blood cultures done at [facility] subsequently yielded a streptococcal organism. We are awaiting the final identification and susceptibilities on that organism. She then came here on the , two days ago, and it was discovered, of course, by that time that her blood cultures were positive at [facility] and she was admitted and started on appropriate broad-spectrum antibiotics aimed at presumed recurrent endocarditis. Subsequently, an echocardiogram has shown a very large tricuspid valve vegetation measuring 1.8 cm, as well as some moderate tricuspid regurgitation. The remainder of her heart valves looked normal on that transthoracic study. This morning the patient tells us she continues to feel badly with subjective fevers, chills, headache, malaise, weakness. She really is not eager to be examined or to give a history, though we were able to persuade her to at least go along with this for a short period, so we could obtain some basic data. PAST MEDICAL HISTORY: 1. 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 2. Ongoing intravenous heroin use. 3. History of AMA discharges. SOCIAL HISTORY: The patient is unemployed and lives with her boyfriend, and does IV heroin and methamphetamine on an ongoing basis. She is also an ongoing cigarette smoker but does not drink alcohol. FAMILY HISTORY: Positive for hypertension, alcoholism and diabetes. REVIEW OF SYSTEMS: Done. At this point, the patient notes that she has a significant and chronic headache, which has been persisting for weeks. She also notes she has photophobia but no defect in her vision. She denies sore throat or trouble swallowing. She denies any stiff neck. She stated she is short of breath but without a productive cough. She does have some left-sided chest pain, which she reports has also been going on for weeks. No nausea, vomiting, diarrhea, dysuria, urgency, frequency. No swelling of the joints. No swelling of the lower extremities. No focal motor deficits. No skin rash noted, and no neurologic symptoms at all noted. Remainder of the review of systems was completely negative. PHYSICAL EXAMINATION: Reveals an afebrile woman who has been afebrile since her admission 48 hours ago. Currently, her temp is 36.7, pulse 66, respiratory rate 16, blood pressure 104/64. She is saturating very well on room air. She appears chronically ill with perhaps some wasting. Her BMI is only 18.8, and her weight 54 kg despite being quite a tall woman at 170 cm. Her skin is overall quite pale but there is no rash and no peripheral stigmata of endocarditis such as ulcers or Janeway lesions nor are there any splinter hemorrhages. The patient is lucid, though she appears perhaps somewhat depressed and withdrawn. Examination of the head reveals no evidence of trauma. No temporal wasting. Her eyes without conjunctivitis or scleral icterus. Her nose appears normal. Oral cavity has a single petechia noted on the palate, otherwise negative. No thrush. No pharyngitis. Her teeth appear to be in fairly good repair. Her neck is supple without JVD which is important in this case. Her lungs are clear. Cardiac tones with an easily heard 2/6 murmur, which is heard quite well along the right and left lower sternal borders. It does not radiate much beyond that. No S3 or S4 is heard. The patient's abdomen is soft and nontender. There is no hepatosplenomegaly. No suprapubic fullness is noted. She does not have a Deras catheter. Examination of her joints shows she has no evidence of synovitis in any of her major joints. Examination of the hand shows no peripheral stigmata of endocarditis. She is neurologically intact. She has good strength everywhere, can move all of her extremities without difficulty. There is no thyromegaly noted, and no other significant abnormalities noted on physical. LABORATORIES: Include a white count of 7500. The diff is normal. Her creatinine is 0.3. LFT normal. Albumin 2.8. Procalcitonin is 0.25. Urinalysis without white cells. Hep C is negative. HIV is negative. Micro studies include multiple positive blood cultures which the lab called about, 6/6 bottles growing Strep viridans. We also reviewed the results from the [facility] which showed multiple positive cultures for strep species. We do not have susceptibilities from either hospital lab yet, and we await those. Her chest CT was reviewed on the view screen with the pulmonary attending in person. It shows multiple bilateral pulmonary nodules, certainly consistent with septic emboli. These have not cavitated yet. The echocardiogram was also reviewed. It shows a large vegetation on the tricuspid valve measuring 1.4 x 1.8 mass, and it is a mobile mass on the anterior leaflet of the tricuspid valve. IMPRESSION: This unfortunate woman had methicillin-sensitive Staphylococcus aureus tricuspid valve endocarditis back in February and was kept six weeks at the [facility] with appropriate IV antibiotics and apparent cure. She felt good for about four months, though she continued to do IV heroin and methamphetamine. About two months ago started to feel lethargic and developed fevers, chills, sweats, and generalized malaise. This almost certainly [place]verde the onset of a second episode of endocarditis due to Streptococcus viridans. Staphylococcus aureus endocarditis tends to be rapidly lethal, killing within days to weeks, whereas viridans endocarditis can be very indolent and especially when it is present on the tricuspid valve. I think her entire history is compatible with a second episode of bacterial endocarditis, which would represent a second episode in two months, both involving the tricuspid valve. The appropriate management of viridans endocarditis will depend on the PHILL to penicillin and ceftriaxone but in any event, I think the patient is going to need to be confined for the duration of her therapy. Such duration is usually 2-4 weeks after blood cultures have turned negative. Whether or not the patient needs a tricuspid valve replacement is unclear. In looking at her echo she does not have dramatically high right-sided pressures, and I suspect most CT surgeons would defer, given her ongoing drug use and history of every six months or so endocarditis this past year. RECOMMENDATIONS: 1. Serial blood cultures will be needed. 2. The duration of antibiotics will be 2-4 weeks. Following the first day the blood cultures are consistently negative. 3. At this point, I see no indication for a transesophageal echo. 4. Will continue with the IV vancomycin today but tomorrow will be able to more accurately target her antibiotics knowing the PHILL of the organism. 5. The patient can receive a PICC line once her blood cultures are negative. 6. I have discussed in great detail with the patient the natural history of endocarditis and what a grave situation this is. I have told her that she needs to stay here 2-4 weeks, depending on what we tell her tomorrow regarding exact duration and that leaving AMA could result in a fatal outcome. I have also told her that she may need a tricuspid valve replacement at sometime in the future and that it could even occur fairly quickly but at this point, I see no absolute indication for that. This case discussed in detail with the primary team.
[2016-10-11 10:59] VITALS: PULSE 75
[2016-10-11 11:33] VITALS: BP 115/72; PULSE 92; RESP 16; O2SAT 100
[2016-10-11] MEDS ORDERED: Vancomycin Serum Trough XX ONE (12:30)
[2016-10-11 15:59] VITALS: BP 104/66; PULSE 79; RESP 20; O2SAT 98
--- NOTE | 2016-10-11 17:27 | NUR ---
Behavior, Leaving AMA She has been non-compliant with treatment today. When the nurse went to take morning vitals and have her medication she refused at that time and said she might accept it later. This nurse went in later and was able to take vitals, perform a physical assessment, and gave 0830 meds about 1200. She consistently refused lab work three times today. Also refused three times to have a brain MRI. Multiple doctors, a medical student, and this nurse tried to talk to her explaining the gravity of her infection and likely medical and life threatening consequences if she continued to refuse treatment, assessments, and testing. She talked about wanting to continue with treatment as she didn't want to , but she did not follow through in her actions. About 1700 she left AMA after Risk Management went to speak with her about a behavioral contract. She became upset, used foul language, insisted that her IV be taken out right away, and that her belonging be gotten out of the locked closet. The IV was discontinued intact by the charge nurse. Security came and unlocked her closet for her to get her belongings before she left by herself. Upon cleaning the room the HOOKER LASTER noted tin foil and a straw in the trash can in the bathroom and said she smelled an odor. This nurse called her mother, Yumi, to let her know her daughter had left AMA. (Yumi is one of her emergency contacts and the patient had given this nurse permission earlier in the day to speak with her about her medical situation). She was frustrated and worried for her daughter. She said that Azeb had called her earlier and angrily asked her, "Why did you talk to the nurse to say that Madi [the boyfriend] shouldn't come in my room!" Yumi also said that the boyfriend, "sent me a nasty text." She ended the call by saying she lived close by and would drive to the hospital parking lot to search for her daughter.
--- NOTE | 2016-10-11 18:25 | NUR ---
AMA Patient reports she is going to leave against medical advice. Risk management spent a lot of time with patient attempting to encourage her to stay. Patient refused. IV taken out with out incident. Patient's belongings returned to her. All risks including gone over with patient who reports she will go to another facility. Patient signed ama and reports she understands the risks.
--- NOTE | 2016-10-11 19:22 | PCM.PNMED ---
Subjective Date of Service Oct 11, 2016 Subjective overnight: patient refused heparin and labs. MRI cancelled due to metal foreign body, discussed with radiology and consideration for attempting the MRI discussed with radiology and neurology Today: The patient continued to reject MRI imaging. She stated that she wanted Methadone for her opiate dependence. She requested nursing staff and physicians out of the room numerous times and rejected blood draws for labs numerous times. Patient eventually left Against Medical Advice according to nursing staff around 17:00 when asked to sign a behavioral contract. Exam Vital Signs Vital Sign - Last Date Time Temp Pulse Resp B/P Pulse Ox O2 Delivery O2 Flow Rate FiO2 10/11/16 03:25 36.7 66 16 104/64 97 Room Air Intake and Output 10/10/16 10/10/16 10/11/16 Cumulative From/Thru 15:00 23:00 07:00 10/09/16 17:32 - 10/11/16 06:03 Intake Total 949 ml 585 ml 2068 ml Output Total 300 ml Balance 949 ml 585 ml 1768 ml Intake Oral 650 ml 300 ml 950 ml IV Total 299 ml 285 ml 1118 ml Output Urine Total 300 ml # Voids 9 3 13 # Bowel Movements 0 0 Exam Patient refused a physical exam performed by myself. Dr. Jesu Wilson was able to list to heart and lungs today. Reported Cardiovascular: Regular rate and rhythm, 3/6 harsh systolic murmur at 4th L intercostal space. peripheral pulses 2/4 equal bilaterally at dorsalis pedis and radial Pulmonary: mild course breath sounds bilaterally, no wheezing or rhonchi Lab and Diagnostics Result Diagram: 10/10/16 0250 10/10/16 0250 Microbiology Microbiology PHILL CULTURE BLOOD Preliminary 10/11/16-728 Organism 1 POSITIVE BLOOD CULTURE GRAM STAIN RESULT GRAM POSITIVE COCCI ?STREP BC BOTTLE Isolated from Aerobic Bottle of Set Drawn DATE CALLED: 10/10/16 TIME CALLED: 1301 CALLED BY: DEISI FLOOR/DOCTOR: CARL/ROSEMARY ABARCA READ BACK Y TYPE OF DRAW PERIPHERAL DRAW TIME OF POSITIVITY 1256 GRAM STAIN RESULT GRAM POSITIVE COCCI ?STREP BC BOTTLE2 Isolated from Anaerobic Bottle of Set Drawn DATE CALLED: 10/10/16 TIME CALLED: 1301 CALLED BY: DEISI FLOOR/DOCTOR: CARL/ROSEMARY ABARCA READ BACK Y TYPE OF DRAW PERIPHERAL DRAW TIME OF POSITIVITY 1225 STREP, PROBABLE VIRIDANS GROUP ID to follow ISOLATED FROM SIX OF SIX BOTTLES COLLECTED 10/09 X-Rays, CTs and MRIs Chest CT performed 10/09/2016 IMPRESSION: Several indeterminate bilateral pulmonary nodular lesions measure 6-12 mm in size, without internal cavitation currently to specifically suggest septic emboli. If outside institution chest CTs are unable to be obtained for direct comparison, 2017 Fleischner Society criteria recommend 3-6 month follow-up with non contrast chest CT. Dictated by: Enoch Zuleta M.D. on 10/09/2016 at 20:07 Cardiac Echo Impressions Echocardiogram Report Interpretation Summary The left ventricle is normal in size, wall thickness, and systolic function without any focal wall motion abnormalities. The ejection fraction is estimated to be 60-65%. There is a 1.4 cm x 1.8 cm mobile mass attached to the anterior leaflet, this is c/w a large vegetation There is moderate tricuspid regurgitation. The right ventricular systolic pressure is estimated at 21 mmHg assuming a right atrial pressure of 3 mm Hg. Electronically signed by: Brooks Spencer on Reading Physician:10/10/2016 04:07 PM Assessment & Plan 25-year-old with polysubstance abuse history of endocarditis, septic emboli, presents with positive blood cultures for gram-positive strep and multiple complaints. She stated that she wanted Methadone for her opiate dependence. She requested nursing staff and physicians out of the room numerous times and rejected blood draws for labs numerous times. Patient eventually left Against Medical Advice according to nursing staff around 17:00 when asked to sign a behavioral contract. #1 acute bacteremia, present on admission, left AMA - Verbal positive result for gram-positive strep growth on blood cultures from [facility], results to be faxed over now in chart positive for Streptococcal - History of endocarditis secondary to IV drug use in December to February of 2016 at [facility], continues to use, 3/6 tricuspid murmur. - Echocardiogram performed consistent with vegetative lesion - Vancomycin IV q24hrs started empirically. Pharmacy to dose. Initial cultures returning positive with likely Strep Awaiting susceptibilities. - Consulted infectious disease - Monitored vital signs closely for signs of sepsis - Hold off on starting PICC line until evaluated by ID. Repeat BCx pending. - Procalcitonin elevated -Patient eventually left Against Medical Advice according to nursing staff around 17:00 when asked to sign a behavioral contract. #2 acute bilateral pulmonary nodules, present on admission, left AMA - likely due to septic emboli - Obtain discharge summary from [facility] (12/20-02/19) or regarding previous hospital course for endocarditis with septic emboli. - ID consult as above with recommendations to continue vancomycin until sensitivies returned, then treat with appropriate antibiotics and serial blood cultures until culture negative and then treat for 2-4 weeks post clear blood cultures - tricuspid vegetation consistent with endocarditis shown on echo - Patient eventually left Against Medical Advice according to nursing staff around 17:00 when asked to sign a behavioral contract. #3 chronic endocarditis, present on admission, left AMA - History of endocarditis, continued murmur at fourth left intercostal space, 3 out of 6, harsh. - Echo as above, empiric antibiotics as above. -Patient eventually left Against Medical Advice according to nursing staff around 17:00 when asked to sign a behavioral contract. #4 chronic polysubstance abuse, currently using, present on admission, unstable left AMA - IV drug use with heroin prior to admission - Urine tox positive for heroin, methamphetamines, and oxycodone. Patient denies oxycodone use. - Withdraw treatment per [facility] protocol Tx with Subutex. Patient refused Suboxone , requested Methadone -First dose is scheduled for 2030 10/10/16, this will be roughly 24hrs since last used. However, should be administered once a COW score of 12 is reached. Pharmacy notified of dosing/dispensing plan. - Doctors [facility] Laursen available to continue Suboxone Tx on Discharge to manage in the outpatient setting. - Clonidine 0.1mg PO q1hr PRN, Hydoxyzine 50mg PO Q6hrs PRN, and Baclofen PRN available - patient has been referred to pain management in the past without follow up, social work will follow Patient eventually left Against Medical Advice according to nursing staff around 17:00 when asked to sign a behavioral contract. #5 Acute Normocytic Anemia, present on Admission, Stable. - Most likely due to chronic disease states of endocarditis, with superimposed pulmonary nodules. - Patient eventually left AMA according to nursing staff around 17:00 when asked to sign a behavioral contract. #6 Headache, present on admission, left AMA - CT with and without contrast on [facility] was negative for pathology - patient refused repeat brain MRI with and without contrast looking for septic emboli given patient history - Patient eventually left AMA according to nursing staff around 17:00 when asked to sign a behavioral contract. #7 Tobacco Use. Present on admission. Left AMA - Encourage tobacco cessation - Nicotine Patches while hospitalized. - Patient eventually left AMA according to nursing staff around 17:00 when asked to sign a behavioral contract. Disposition: Patient eventually left AMA according to nursing staff around 17: 00 when asked to sign a behavioral contract. GI Prophylaxis: Not indicated VTE Prophylaxis: Sub-Q Heparin (Unfractionated) Resuscitation Status: CPR: Attempt Resuscitation Attending Statement The patient was seen and examined together with Dr. Ching on 10/11/2016 and I agree with the history, exam and plan as outlined in the note above. . Robert Ching DO Oct 11, 2016 06:52 Jesu Wilson MD Oct 13, 2016 07:30
--- NOTE | 2016-10-11 19:31 | PCM.DC.MED ---
Discharge Summary Date of Service Oct 11, 2016 Dates of Hospitalization Date of Hospital Admission Oct 09, 2016 at 19:56 Date of Discharge: Oct 11, 2016 Providers: Admitting Physician: Caro Olivo DO Primary Care Physician: Asuncion Sanders Attending Physician: Caro Olivo DO Diagnosis at Time of Discharge Diagnosis at Time of Discharge The patient had asked specifically for methadone several times for her opiate dependence. The patient's mother reported to nursing staff via phone call that she was worried that her daughter's boyfriend would provide the patient opiates. The patient refused numerous blood draws for labs, as well as MRI imaging of her head to check for septic emboli causing her chronic headaches. Patient eventually left AMA according to nursing staff around 17:00 when asked to sign a behavioral contract for her polysubstance abuse. Recommendations that the patient be transferred to a facility such as [facility] if she were to return for treatment of her endocarditis given her need for initiation of Methadone as an inpatient. #1 acute endocarditis #2 chronic polysubstance abuse including opiate dependence #3 acute bacteremia #4 acute bilateral pulmonary nodules likely septic emboli #5 Acute Normocytic Anemia #6 Headache #7 Nicotine Dependence Consultations infectious disease Procedures XRay, CTs & MRIs Chest CT performed 10/09/2016 IMPRESSION: Several indeterminate bilateral pulmonary nodular lesions measure 6-12 mm in size, without internal cavitation currently to specifically suggest septic emboli. If outside institution chest CTs are unable to be obtained for direct comparison, 2017 Fleischner Society criteria recommend 3-6 month follow-up with non contrast chest CT. Dictated by: Enoch Zuleta M.D. on 10/09/2016 at 20:07 Cardiac Echo Impression Echocardiogram Report Interpretation Summary The left ventricle is normal in size, wall thickness, and systolic function without any focal wall motion abnormalities. The ejection fraction is estimated to be 60-65%. There is a 1.4 cm x 1.8 cm mobile mass attached to the anterior leaflet, this is c/w a large vegetation There is moderate tricuspid regurgitation. The right ventricular systolic pressure is estimated at 21 mmHg assuming a right atrial pressure of 3 mm Hg. Electronically signed by: Brooks Spencer on Reading Physician:10/10/2016 04:07 PM Brief History from the H&P of Nick San DO 25-year-old woman with history of endocarditis and IV drug abuse presented to the emergency department complaining of chest pain onset 3 months ago, she was previously seen at [facility] emergency department last night but eloped, she had blood cultures taken at the time which she was contacted today as being positive for strep. She was previously treated at [facility] in February 2016 for endocarditis. She admits to using IV heroin before coming to the emergency department today. She endorses chest pain, headache, weakness, shortness of breath, fever, chills , malaise and fatigue, constipation, no pain in her fingertips or toes. No Nausea, vomiting, diarrhea, dysuria, changes in vision, joint pain: In the emergency department, her urine was positive for heroin, methamphetamines , and oxycodone, she is not . Blood cultures 2 were taken in the ER before starting antibiotics, results pending. White blood cells were 5.6, hemoglobin 9.9, platelets 274, normal differential. Lactic acid 1.1, negative troponin, CMP otherwise unremarkable. One view chest x-ray performed 10/09/16 at 1730 4 PM IMPRESSION: No radiographic explanation for chest pain. Dictated by: Enoch Zuleta M.D. on 10/09/2016 at 17:56 EKG performed in the emergency department showed a heart rate of 74, sinus rhythm, normal axis, VT interval of 138, QTC of 445, "nonspecific intraventricular conduction delay Hospital Course 25-year-old with polysubstance abuse history of endocarditis, septic emboli, presents with positive blood cultures for gram-positive strep and multiple complaints. She stated that she wanted Methadone for her opiate dependence. She requested nursing staff and physicians out of the room numerous times and rejected blood draws for labs numerous times. Patient eventually left AMA according to nursing staff around 17:00 when asked to sign a behavioral contract. #1 acute bacteremia, present on admission - Verbal positive result for gram-positive strep growth on blood cultures from [facility], results to be faxed over now in chart positive for Streptococcal - History of endocarditis secondary to IV drug use in December to February of 2016 at [facility], continues to use, 3/6 tricuspid murmur. - Echocardiogram performed consistent with vegetative lesion - Vancomycin IV q24hrs started empirically. Pharmacy to dose. Initial cultures returning positive with likely Strep Awaiting susceptibilities. - Consulted infectious disease - Monitored vital signs closely for signs of sepsis - Hold off on starting PICC line until evaluated by ID. Repeat BCx pending. - Procalcitonin elevated -Patient eventually left AMA according to nursing staff around 17:00 when asked to sign a behavioral contract. #2 acute bilateral pulmonary nodules, present on admission - likely due to septic emboli - Obtain discharge summary from [facility] (12/20-02/19) or regarding previous hospital course for endocarditis with septic emboli. - ID consult as above with recommendations to continue vancomycin until sensitivies returned, then treat with appropriate antibiotics and serial blood cultures until culture negative and then treat for 2-4 weeks post clear blood cultures - tricuspid vegetation consistent with endocarditis shown on echo - Patient eventually left AMA according to nursing staff around 17:00 when asked to sign a behavioral contract. #3 chronic endocarditis, present on admission - History of endocarditis, continued murmur at fourth left intercostal space, 3 out of 6, harsh. - Echo as above, empiric antibiotics as above. -Patient eventually left AMA according to nursing staff around 17:00 when asked to sign a behavioral contract. #4 chronic polysubstance abuse, currently using, present on admission, unstable. - IV drug use with heroin prior to admission - Urine tox positive for heroin, methamphetamines, and oxycodone. Patient denies oxycodone use. - Withdraw treatment per [facility] protocol Tx with Subutex. Patient refused Suboxone , requested Methadone -First dose is scheduled for 202910/10/16, this will be roughly 24hrs since last used. However, should be administered once a COW score of 12 is reached. Pharmacy notified of dosing/dispensing plan. - [facility] available to continue Suboxone Tx on Discharge to manage in the outpatient setting. - Clonidine 0.1mg PO q1hr PRN, Hydoxyzine 50mg PO Q6hrs PRN, and Baclofen PRN available - patient has been referred to pain management in the past without follow up, social work will follow Patient eventually left AMA according to nursing staff around 17:00 when asked to sign a behavioral contract. #5 Acute Normocytic Anemia, present on Admission - Most likely due to chronic disease states of endocarditis, with superimposed pulmonary nodules. - Patient eventually left AMA according to nursing staff around 17:00 when asked to sign a behavioral contract. #6 Headache, present on admission, under evaluation - CT with and without contrast on [facility] was negative for pathology - patient refused repeat brain MRI with and without contrast looking for septic emboli given patient history - Patient eventually left AMA according to nursing staff around 17:00 when asked to sign a behavioral contract. #7 Tobacco Use. Present on admission. Stable. - Encourage tobacco cessation - Nicotine Patches while hospitalized. - Patient eventually left AMA according to nursing staff around 17:00 when asked to sign a behavioral contract. Disposition: Patient eventually left AMA according to nursing staff around 17: 00 when asked to sign a behavioral contract. Exam Vital Signs (Last) Date Time Temp Pulse Resp B/P Pulse Ox O2 Delivery O2 Flow Rate FiO2 10/11/16 15:59 36.8 79 20 104/66 98 Room Air Exam Patient refused a physical exam performed by myself. Dr. Jesu Wilson was able to list to heart and lungs today. Reported Cardiovascular: Regular rate and rhythm, 3/6 harsh systolic murmur at 4th L intercostal space. peripheral pulses 2/4 equal bilaterally at dorsalis pedis and radial Pulmonary: mild course breath sounds bilaterally, no wheezing or rhonchi Test 10/09/16 17:34 10/09/16 17:40 10/09/16 18:34 10/10/16 02:50 Urine Color Yellow (YELLOW) Urine Appearance Hazy (CLEAR,HAZY) Urine pH 7.5 (5.0-8.0) Urine Specific [place] 1.020 (1.003-1.035) Urine Protein Negativemg/dL (NEG,TRACE) Urine Glucose (UA) Negativemg/dL (NEGATIVE) Urine Ketones Negativemg/dL (NEGATIVE) Urine Occult Blood Negative (NEGATIVE) Urine Nitrite Negative (NEGATIVE) Urine Bilirubin Negative (NEGATIVE) Urine Urobilinogen Normalmg/dL (NORMAL) Urine Leukocyte Esterase Negative (NEGATIVE) Urine RBC 0-2/hpf (0-2) Urine WBC 0-5/hpf (0-5) Urine Epithelial Cells Many/hpf (NONE-MOD) Urine Crystals None seen (NONE SEEN) Urine Bacteria Few/hpf (NONE-FEW) Urine Hyaline Casts None/lpf (NONE) Urine Granular Casts None seen (NONE SEEN) Urine Waxy Casts None seen (NONE SEEN) Urine Red Blood Cell Casts None seen (NONE SEEN) Urine White Blood Cell Casts None seen (NONE SEEN) Urine Mucus Present (None Seen) Urine Trichomonas None seen (NONE SEEN) Urine Yeast None (NONE SEEN) Urinalysis Comment None Urine Culture Reflexed Not indicated Hold Urine Received (Received) Lactic Acid Level 1.1mmol/L (0.4-2.0) Magnesium Level 2.2mg/dL (1.6-2.6) Troponin T < 0.010ug/L (0.0-0.011) Procalcitonin 0.25ng/mL (0.00-0.08) Hold [place] Top Tube Received (Received) White Blood Count 7.5th/mm3 (3.8-10.1) Red Blood Count 3.29mil/mm3 (3.90-5.20) Hemoglobin 9.1g/dL (12.0-15.6) Hematocrit 28.0% (35.0-46.0) Mean Corpuscular Volume 85.1fL (81-100) Mean Corpuscular Hemoglobin 27.7pg (27.0-35.0) Mean Corpuscular Hemoglobin Concent 32.5% (32.0-37.0) Red Cell Distribution Width 13.3% (12.3-15.4) Platelet Count 222bil/L (150-400) Neutrophils (%) (Auto) 57.0% (40-74) Lymphocytes (%) (Auto) 27.2% (14-46) Monocytes (%) (Auto) 13.1% (4-12) Eosinophils (%) (Auto) 1.9% (0-5) Basophils (%) (Auto) 0.4% (0-3) Sodium Level 138mEq/L (134-144) Potassium Level 4.3mEq/L (3.5-5.2) Chloride Level 105mEq/L (97-108) Carbon Dioxide Level 23mmol/L (18-29) Blood Urea Nitrogen 10mg/dL (6-20) Creatinine 0.30mg/dL (0.57-1.00) Estimat Glomerular Filtration Rate 385mL/min (>59) Glucose Level 91mg/dL (60-99) Calcium Level 8.3mg/dL (8.5-10.1) Total Bilirubin 0.2mg/dL (0.0-1.2) Aspartate Amino Transf (AST/SGOT) 20U/L (0-50) Alanine Aminotransferase (ALT/SGPT) 16U/L (0-32) Alkaline Phosphatase 94U/L (25-150) Total Protein 6.2g/dL (6.4-8.4) Albumin 2.8g/dL (3.4-5.0) Test 10/10/16 18:40 Vancomycin Level Trough 11.0mcg/mL Hepatitis A IgM Antibody Negative (Negative) Hepatitis B Surface Antigen Negative (Negative) Hepatitis B Core IgM Antibody Negative (Negative) Hepatitis C Antibody 0.8s/co ratio (0.0-0.9) Hepatitis C Comment Comment (.) HIV (1&2) Ag and Ab, 4th Generation Non reactive (Non Reactive) Microbiology Results Microbiology PHILL CULTURE BLOOD Preliminary 10/11/16-728 Organism 1 POSITIVE BLOOD CULTURE GRAM STAIN RESULT GRAM POSITIVE COCCI ?STREP BC BOTTLE Isolated from Aerobic Bottle of Set Drawn DATE CALLED: 10/10/16 TIME CALLED: 1301 CALLED BY: DEISI FLOOR/DOCTOR: CARL/ROSEMARY ABARCA READ BACK Y TYPE OF DRAW PERIPHERAL DRAW TIME OF POSITIVITY 1256 GRAM STAIN RESULT GRAM POSITIVE COCCI ?STREP BC BOTTLE2 Isolated from Anaerobic Bottle of Set Drawn DATE CALLED: 10/10/16 TIME CALLED: 1301 CALLED BY: DEISI FLOOR/DOCTOR: CARL/ROSEMARY ABARCA READ BACK Y TYPE OF DRAW PERIPHERAL DRAW TIME OF POSITIVITY 1225 STREP, PROBABLE VIRIDANS GROUP ID to follow ISOLATED FROM SIX OF SIX BOTTLES COLLECTED 10/09 Discharge Medications No Active Prescriptions or Reported Meds Followup Plan Disposition: Patient Left AMA Follow-up plan The patient had asked specifically for methadone several times for her opiate dependence. The patient's mother reported to nursing staff via phone call that she was worried that her daughter's boyfriend would provide the patient opiates. The patient refused numerous blood draws for labs, as well as MRI imaging of her head to check for septic emboli causing her chronic headaches. Patient eventually left AMA according to nursing staff around 17:00 when asked to sign a behavioral contract for her polysubstance abuse. Recommendations that the patient be transferred to a facility such as [facility] if she were to return for treatment of her endocarditis given her need for initiation of Methadone as an inpatient. Attending Statement The patient was seen and examined together with Dr. Ching on 10/11/2016 and I agree with the history, exam and plan as outlined in the note above. . copies to: Asuncion Sanders Nicholas K DO Oct 11, 2016 19:31 Jesu Wilson MD Oct 13, 2016 07:31
== END 2016-10-11 17:59 | disposition left against medical advice (07) ==
LOC: SED 17:12 → PCC 19:56 → INTOOBSV 19:56
PROVIDERS: ADMIT Internal Medicine; ATTEND Internal Medicine
DX: I33.9 Acute and subacute endocarditis, unspecified (principal); R91.8 Other nonspecific abnormal finding of lung field; F19.10 Other psychoactive substance abuse, uncomplicated; D64.9 Anemia, unspecified; R51 Headache; F17.210 Nicotine dependence, cigarettes, uncomplicated; Z86.14 Personal history of Methicillin resistant Staphylococcus aureus infection
CPT/HCPCS: 36415; 71010; 71260; 80053; 80202; 81000; 82308; 83605; 83735; 84484; 85025; 86705; 86709; 87040; 87077; 87081; 87186; 87340; 87341; 93005; 96365; 96366; 99285; C8929; G0433; G0472; J1644; J3370; J7050; Q0177; Q9967